=== PATIENT | male | born 1960 | race Caucasian/White ===

== ENCOUNTER 2020-01-07 18:55 | Outpatient (REF) | payer SELFPAY ==
[2020-01-07 19:54] LABS: CREATININE 0.78 mg/dL (0.70-1.30); Calculated LDL 151 mg/dL (<100); Cholesterol 252 mg/dL (<200); Glucose 88 mg/dL (74-106); HDL Cholesterol 82 mg/dL (40-60); Triglyceride 98 mg/dL (<150)
== END 2020-01-07 19:15 ==
LOC: NCHCN 18:55
PROVIDERS: Visit Provider Internal Medicine
DX: Z00.00 Encounter for general adult medical examination without abnormal findings (principal); M48.061 Spinal stenosis, lumbar region without neurogenic claudication; Z13.1 Encounter for screening for diabetes mellitus; Z13.220 Encounter for screening for lipoid disorders
CPT/HCPCS: 80061; 82947; 82565

== ENCOUNTER 2020-08-30 15:19 | Outpatient (REF) | payer OTHER, SELFPAY ==
[2020-08-31 14:19] LABS: COVID-19 RT-PCR UVMMC Result Negative (Negative)
== END 2020-08-30 15:20 | disposition home or self-care (01) ==
LOC: NCHCN 15:19
PROVIDERS: PCP Physician Assistant; Visit Provider Physician Assistant
DX: Z20.822 Contact with and (suspected) exposure to COVID-19 (principal)
CPT/HCPCS: U0003

== ENCOUNTER 2024-11-24 15:23 | Outpatient (REF) | payer MEDICARE, SELFPAY ==
[2024-11-24 20:17] LABS: Abs Immature Grans 0.11 10^3/uL (0.0-0.06); Absolute Basophil Count 0.03 10^3/uL (0.0-0.2); Absolute Eosinophil Count 0.04 10^3/uL (0.0-0.7); Absolute Lymphocyte Count 2.05 10^3/uL (1.2-3.4); Absolute Monocyte Count 0.69 10^3/uL (0.1-0.8); Absolute Neutrophil Count 2.15 10^3/uL (1.2-6.7); Basophils % 0.6 %; Eosinophils % 0.8 %; HCT 44.7 % (40.0-50.0); HGB 14.9 g/dL (13.5-17.5); Immature Grans % 2.2 %; Lymphocytes % 40.4 %; MCH 29.7 pg (27.0-33.0); MCHC 33.3 % (32.0-36.0); MCV 89 fL (80-95); MPV 9.9 fL (8.0-11.0); Monocytes % 13.6 %; Neutrophils % 42.4 %; Platelet Count 225 10^3/uL (130-400); RBC 5.02 10^6/uL (4.36-5.78); RDW 11.9 % (11.8-14.1); RDW-SD 38.1 fL; WBC 5.07 10^3/uL (4.4-10.8)
[2024-11-24 20:35] LABS: NT-proBNP 84 pg/mL (<300)
== END 2024-11-24 15:24 | disposition home or self-care (01) ==
LOC: NCHCN 15:23
PROVIDERS: PCP Physician Assistant; Visit Provider Physician Assistant
DX: R06.02 Shortness of breath (principal)
CPT/HCPCS: 83880; 85025

== ENCOUNTER 2024-12-31 00:35 | Outpatient (CLI) | payer MEDICARE, OTHER, SELFPAY ==
--- NOTE | 2024-12-31 | DI.RAD_ITS ---
Exam(s) RF BARIUM SWALLOW EXAM: RF BARIUM SWALLOW CLINICAL HISTORY: R13.19 Other dysphagia, Esophageal dysphagia TECHNIQUE: 2D and realtime digital imaging was performed. CONTRAST MATERIAL: Oral barium Oral water soluble contrast was administered. COMPARISON: No exams were available for comparison FINDINGS: ESOPHAGRAM: Performed both standing and recumbent. There was no aspiration evident. No evidence of Zenker's diverticulum. No prominent hypertense uppe r esophageal sphincter. There is some mild narrowing of the esophagus at the level of the aortic arc h but this appeared inconsistent. There were no tertiary waves nor evidence of achalasia. However t owards the end the study with the patient drinking in GARCIA position we were able to demonstrate Ludin ki ring in the lower esophagus just above the GE junction. No obvious hiatal hernia nor reflux demonstrated. IMPRESSION: Schatzki ring demonstrated in lower esophagus towards the end of the study. No other obvious consist ent focal findings. I note that this patient has a prior history of a few years ago having had some swallowed steak stuck in his esophagus which required visit to the emergency room. This is often ass ociated with a Schatzki ring. Recommend endoscopy. RADIATION DOSE DELIVERED: esteban Martinez=33.1 mGy
[2024-12-31] MEDS: Barium Sulfate 60% W/V 355 ML BTL PO (10:08)
[2024-12-31] MEDS: Barium Sulfate 98% W/W 140 ML BTL PO (10:09)
== END 2024-12-31 00:55 ==
PROVIDERS: PCP Physician Assistant; Visit Provider Physician Assistant
DX: R13.19 Other dysphagia (principal)
CPT/HCPCS: 74221; J3490

== ENCOUNTER 2025-04-21 15:12 | Outpatient (REF) | payer MEDICARE, OTHER, SELFPAY ==
[2025-04-21 21:05] LABS: ALT 32 U/L (16-63); AST 25 U/L (15-37); Albumin 4.1 g/dL (3.4-5.0); Alkaline Phosphatase 47 U/L (46-116); Anion Gap 6.1 mmol/L (3-11); BUN 11 mg/dL (7-18); Bilirubin, Total 0.7 mg/dL (0.2-1.0); CO2 30.9 mmol/L (21.0-32.0); Calcium 8.9 mg/dL (8.5-10.1); Chloride 102 mmol/L (98-107); Estimated GFR 98.21 (mL/min/1.73m2); Glucose 114 mg/dL (74-106); LDL CHOLESTEROL 139 mg/dL (<100); Potassium 4.4 mmol/L (3.5-5.1); Sodium 139 mmol/L (136-145); Total Protein 7.6 g/dL (6.4-8.2)
== END 2025-04-21 15:13 | disposition home or self-care (01) ==
LOC: NCHCN 15:12
PROVIDERS: PCP Physician Assistant; Visit Provider Physician Assistant
DX: E78.5 Hyperlipidemia, unspecified (principal)
CPT/HCPCS: 80053; 83721

== ENCOUNTER 2025-05-19 12:30 | Outpatient (REF) | payer MEDICARE, OTHER, SELFPAY | END 2025-05-19 12:31 | disposition home or self-care (01) | LOC: NCHCN 12:30 | PROVIDERS: PCP Physician Assistant; Visit Provider Nurse Practitioner Family | DX: L82.0 Inflamed seborrheic keratosis (principal) | CPT/HCPCS: 88305 ==